=== PATIENT | female | born 1945 | race Caucasian/White ===

== ENCOUNTER 2018-12-14 15:56 | Emergency (ER) | payer MEDICARE, BC ==
[2018-12-14] MEDS ORDERED: DECADRON 10MG INJ. PO ONE (16:51)
[2018-12-14] MEDS ORDERED: DECADRON 10MG INJ. ONE (17:08)
[2018-12-14 17:40] VITALS: BP 142/54
--- NOTE | 2018-12-14 18:04 | ERPHSYRPT ---
- History of Present Illness Time Seen by Provider: 12/14/18 16:40 Source: patient Exam Limitations: no limitations Patient Subjective Stated Complaint: pt reports approx 1400 today she ate a veggie burger at [facility] less than 10 mins later her face, eyes and throat began to swell. pt denies pain or shortness of breath. EMS reports upon arrival on scene pt had slight wheezes. Triage Nursing Assessment: pt is aox3, pupils perrl, pt has edema noted to the bilat eye lids, skin is intact, pt appears in no distress at this time, pt with muffled voice, resps easy and non labored, lung sounds are clear throughout all mancini, radial pulses strong and equal, cap refill < 3 seconds. pt appears to be shaking upon exam post epi. Allergies/Adverse Reactions: No Known Drug Allergies Allergy (Verified 12/14/18 16:23) Home Medications: Metformin HCl 500 mg [Glucophage 500 MG] 1,000 mg PO BID 09/26/11 [History ] Bisoprolol Fumarate/Hctz [Bisoprolol-Hctz 5-6.25 mg Tab] 1 each PO BID 09/27/11 [History] Glyburide Micronized 3 mg 3 mg BID 06/09/12 [History] Hx Tetanus, Diphtheria Vaccination/Date Given: Yes Hx Influenza Vaccination/Date Given: Yes Hx Pneumococcal Vaccination/Date Given: No Immunizations Up to Date: Yes - Review of Systems Constitutional: Malaise Respiratory: No Symptoms, No Cough, No Cyanosis, No Dyspnea, No Dyspnea on Exertion (MAN) Cardiac: No Symptoms, No Chest Pain, No Edema, No Palpitations, No Syncope Abdominal/Gastrointestinal: No Symptoms Skin: Other (felt flushed) Neurological: Dizziness Psychological: Anxiety All Other Systems: Reviewed and Negative - Past Medical History Pertinent Past Medical History: Yes Neurological History: No Pertinent History ENT History: Cataracts Cardiac History: Hypertension Respiratory History: No Pertinent History Endocrine Medical History: Diabetes Type II Musculoskeletal History: Arthritis GI Medical History: No Pertinent History History: No Pertinent History Psycho-Social History: No Pertinent History Female Reproductive Disorders: No Pertinent History - Past Surgical History Past Surgical History: Yes Neuro Surgical History: No Pertinent History Cardiac: No Pertinent History Respiratory: No Pertinent History Gastrointestinal: No Pertinent History Musculoskeletal: No Pertinent History Female Surgical History: Section - Social History Smoking Status: Never smoker Exposure to second hand smoke: No Drug Use: none Patient Lives Alone: No - Female History Hx Now: No - Nursing Vital Signs Nursing Vital Signs: Initial Vital Signs Temperature 98.1 F 12/14/18 15:57 Pulse Rate 90 12/14/18 15:57 Respiratory Rate 22 12/14/18 15:57 Blood Pressure 159/61 12/14/18 15:57 O2 Sat by Pulse Oximetry 97 12/14/18 15:57 Pain Scale Pain Intensity 0 - Physical Exam General Appearance: no apparent distress (Still slightly anxious but better than she did when first seeking help) Eye Exam: PERRL/EOMI, eyes nml inspection Ears, Nose, Throat Exam: normal ENT inspection, TMs normal, pharynx normal ( angio edema), moist mucous membranes Neck Exam: normal inspection, non-tender, supple, full range of motion Respiratory Exam: normal breath sounds, chest tenderness, lungs clear, airway intact, No respiratory distress, No diminished breath sounds, No accessory muscle use, No prolonged expirations, No crackles/rales, No rhonchi, No wheezing , No stridor Cardiovascular Exam: regular rate/rhythm, normal heart sounds, normal peripheral pulses Extremity Exam: normal inspection, normal range of motion Neurologic Exam: alert, oriented x 3, cooperative, normal mood/affect Skin Exam: normal color, warm, dry, rash SpO2 Interpretation: normal SpO2: 96 O2 Delivery: Room Air - Course Nursing assessment & vital signs reviewed: Yes Ordered Tests: Medication Summary Discontinued Medications Generic Name Dose Route Start Last Admin Trade Name Ruthie PRN Reason Stop Dose Admin Dexamethasone Sodium Phosphate 10 mg 12/14/18 16:51 12/14/18 17:10 Decadron 10mg Inj. PO 12/14/18 16:52 10 mg STAT ONE Administration Dexamethasone Sodium Phosphate Confirm 12/14/18 17:08 Decadron 10mg Inj. Administered 12/14/18 17:09 Dose 10 mg .ROUTE .STK-MED ONE - Progress Progress: improved Progress Note: 12/14/18 18:10 Feels better - wants to go home; no history of lung problems - no COPD or emphysemia - never a smoker. [place] a little short of air when she had the dizzy feeling. Plan to DC her with prednisone next few days. - Departure Departure Disposition: Home Clinical Impression: Allergic reaction Qualifiers: Encounter type: initial encounter Qualified Code(s): T78.40XA - Allergy, unspecified, initial encounter Condition: Stable Critical Care Time: No Referrals: NELSON NEVES [Primary Care Provider] - Additional Instructions: Take prednisone as prescribed (transmitted to pharmacy); return to ER if this reaction returns or if you are feeling short of breath. Follow up with primary care - call their office Monday and advise them of your ER visit. Prescriptions: Prednisone 20 mg [Deltasone 20 mg] 40 mg PO DAILY 6 Days #12 tablet
[2018-12-14 19:06] VITALS: PULSE 78
[2018-12-15 19:34] VITALS: O2SAT 96
== END 2018-12-14 19:08 | disposition home or self-care (01) ==
LOC: ED 15:56
DX: T78.40XA Allergy, unspecified, initial encounter (principal)
CPT/HCPCS: 99283; J1100

== ENCOUNTER 2021-12-15 06:48 | Day surgery (SDC) | payer MEDICARE, BC ==
[2021-12-15] MEDS ORDERED: LIDOCAINE HCL 2% 100 MG/5 ML IJ ONE (06:49)
[2021-12-15] MEDS ORDERED: Decadron 4 MG INJ IV ONE (06:49)
[2021-12-15] MEDS ORDERED: DIPRIVAN 200 MG/20 ML IV ONE (08:38)
--- NOTE | 2021-12-15 10:01 | XRAY ---
Indication: Right C2-C4 MBB. Intraoperative fluoroscopy provided for 21 seconds. 4 digital spot images submitted for interpretation demonstrates posterior needle tips projecting over the expected right C2-C4 nerve roots. Correlate with intraoperative findings/report.
--- NOTE | 2021-12-15 10:05 | XRAY ---
21 seconds of fluoroscopy was used in surgery for a right C2-C4 MBB.
[2021-12-15] MEDS ORDERED: Lactated Ringers 1,000 ML IV ONE (10:16)
== END 2021-12-15 09:05 | disposition home or self-care (01) ==
LOC: SDC-PAIN 06:48
PROVIDERS: ATTEND Psychiatry & Neurology Pain Medicine
DX: M47.812 Spondylosis without myelopathy or radiculopathy, cervical region (principal); E11.9 Type 2 diabetes mellitus without complications; Z79.899 Other long term (current) drug therapy
CPT/HCPCS: 64490; 64491; 72040; 77002; 82947; J1100; J2704

== ENCOUNTER 2022-01-12 10:19 | Day surgery (SDC) | payer MEDICARE, BC ==
[2022-01-12] MEDS ORDERED: BUPIVACAINE 0.5% VIAL IJ ONE (10:20)
[2022-01-12] MEDS ORDERED: Decadron 4 MG INJ IV ONE (10:20)
[2022-01-12] MEDS ORDERED: DIPRIVAN 200 MG/20 ML IV ONE (11:40)
--- NOTE | 2022-01-12 12:30 | XRAY ---
Indication: Right C2-C4 MBB. Intraoperative fluoroscopy provided for 20 seconds. 2 digital spot images submitted for interpretation demonstrates posterior needle tips projecting over the right C2-C4 nerve roots. Correlate with intraoperative findings/report.
[2022-01-12] MEDS ORDERED: Lactated Ringers 1,000 ML IV ONE (13:33)
--- NOTE | 2022-01-12 13:35 | XRAY ---
20 seconds fluoroscopy time in surgery for right C2-C4 MBB.
== END 2022-01-12 12:00 | disposition home or self-care (01) ==
LOC: SDC-PAIN 10:19
PROVIDERS: ATTEND Psychiatry & Neurology Pain Medicine
DX: M47.812 Spondylosis without myelopathy or radiculopathy, cervical region (principal); E11.9 Type 2 diabetes mellitus without complications; Z79.899 Other long term (current) drug therapy
CPT/HCPCS: 64490; 64491; 72040; 77002; 82947; J1100; J2704

== ENCOUNTER 2022-01-26 06:51 | Day surgery (SDC) | payer MEDICARE, BC ==
[2022-01-26] MEDS ORDERED: BUPIVACAINE 0.5% VIAL IJ ONE (06:52)
[2022-01-26] MEDS ORDERED: Xylocaine 1% Vial 30 ML PF IJ ONE (06:52)
[2022-01-26] MEDS ORDERED: Decadron 4 MG INJ IV ONE (06:52)
[2022-01-26] MEDS ORDERED: DIPRIVAN 200 MG/20 ML IV ONE (08:06)
--- NOTE | 2022-01-26 10:25 | XRAY ---
Indication: Right C2-C4 RFA. Intraoperative fluoroscopy provided for 43 seconds. 2 digital spot image submitted for interpretation demonstrates posterior needle tips projecting over the expected right C2-C4 nerve roots. Correlate with intraoperative findings/report.
--- NOTE | 2022-01-26 10:58 | XRAY ---
43 seconds fluoroscopy time used for right C2-C4 RFA.
[2022-01-26] MEDS ORDERED: Lactated Ringers 1,000 ML IV ONE (11:48)
== END 2022-01-26 08:50 | disposition home or self-care (01) ==
LOC: SDC-PAIN 06:51
PROVIDERS: ATTEND Psychiatry & Neurology Pain Medicine
DX: M47.812 Spondylosis without myelopathy or radiculopathy, cervical region (principal); E11.9 Type 2 diabetes mellitus without complications; Z79.899 Other long term (current) drug therapy
CPT/HCPCS: 64633; 64634; 72040; 77002; 82947; 99100; J1100; J2001; J2704